=== PATIENT | male | born 1955 | race Caucasian/White ===

== ENCOUNTER 2018-05-24 10:41 | Inpatient (IN) | payer OTHER ==
[2018-05-24 11:14] VITALS: BMI 21.1
--- NOTE | 2018-05-24 17:07 | HP ---
"CIWA Score Nausea/Vomitin-Int. Nausea w/Dry Heave (Moderate nausea. Denies vomiting) Muscle Tremors: 4-Moderate,w/Arms Extend Anxiety: 3 Agitation: 1-Slight > Activity Paroxysmal Sweats: 3 (Increased facial moisture) Orientation: 0-Oriented Tacttile Disturbances: 0-None Auditory Disturbances: 0-None Visual Disturbances: 0-None Headache: 0-None Present CIWA-Ar Total Score: 15 - Admission Criteria OASAS Guidelines: Admission for Medically Managed Detox: Requires at least one of the followin. CIWA greater than 12 2. Seizures within the past 24 hours 3. Delirium tremens within the past 24 hours 4. Hallucinations within the past 24 hours 5. Acute intervention needed for co occurring medical disorder 6. Acute intervention needed for co occurring psychiatric disorder 7. Severe withdrawal that cannot be handled at a lower level of care (continued vomiting, continued diarrhea, abnormal vital signs) requiring intravenous medication and/or fluids 8. Patient presents the following: CIWA greater than 12 Admission Criteria Met: Admission criteria met Admission ROS S - [facility] Chief Complaint: Here for alcohol withdrawal. Allergies/Adverse Reactions: Allergies Allergy/AdvReac Type Severity Reaction Status Date / Time penicillin G Allergy Severe Swelling Verified 05/24/18 15:26 History of Present Illness: States here for alcohol detox. States friend gave him a Librium a few days ago to help with the withdrawal. Denies other illicit drug use. Alcohol use began at age 13. Nicotine use began at age 13. Denies hx Seizures. Hx: Blackouts - none recently. Hx: A-Fib - 2011. Denies chest pain. Denies current meds (Confirmed on today's EKG) Hx: Hemmorrhoids. The longest length of sobriety is a few days. Has tried stopping on own. Tried a detox and rehab program a couple of years ago. States relapsed approx one month after being discharged. Hx: Mental health issues. No recent mental health meds/ Denies thoughts of harming self or others. Encouraged to obtain and f/u w/ a MH provider and PCP upon discharged. Discussed the need for community support and sober housing. Search Terms: Ulices Chapmancynthia, 1955 Search Date: 05/24/2018 05:01:52 PM The Drug Utilization Report below displays all of the controlled substance prescriptions, if any, that your patient has filled in the last twelve months. The information displayed on this report is compiled from pharmacy submissions to the Department, and accurately reflects the information as submitted by the pharmacies. This report was requested by: Emily Kam | Reference #: [id number] Others' Prescriptions Patient Name: Ulices Reed Date: 1955 Address: [address] [place] [address] Sex: Male Rx Written Rx Dispensed Drug Quantity Days Supply Prescriber Name 08/13/2015 06/29/2017 lorazepam 1 mg tablet 4 2 [facility] Exam Limitations: No Limitations - Ebola screening Have you traveled outside of the country in the last 21 days: No Have you had contact with anyone from an Ebola affected area: No Have you been sick,other than usual withdrawal symptoms: No Do you have a fever: No - Review of Systems Constitutional: Diaphoresis EENT: reports: Blurred Vision (Reading glasses), Hearing Loss (Difficulty hearing when there are lots of noises present.), Dental Problems (Dentures - fit well. Denies difficulty chewing or swallowing.) Respiratory: reports: SOB with Exertion (Walking fast or climbing stairs) Cardiac: reports: Irregular Heart Rate (Hx: A-fib. Not on medications. Denies chest pain.) GI: reports: Diarrhea (r/t alcohol withdrawal), Nausea (r/t alcohol withdrawal) , Other (States has hemorrhoids causing rectal pain r/t diarrhea.) : reports: Other (Difficulty initiating flow.) Musculoskeletal: reports: No Symptoms Reported Integumentary: reports: No Symptoms Reported Neuro: reports: Tremors Endocrine: reports: Increased Thirst Hematology: reports: No Symptoms Reported Psychiatric: reports: Judgement Intact, Orientated x3, Agitated, Anxious, Depressed (Denies thoughts of harming self or others) Patient History - Patient Medical History Hx Asthma: No Hx Chronic Obstructive Pulmonary Disease (COPD): No Hx Cardiac Disorders: Yes (Hx A fib - stopped meds in 2011. ) Hx Hypertension: No Hx Seizures: No Hx Diabetes: No Hx Gastrointestinal Disorders: No Hx Liver Disease: No Hx Genitourinary Disorders: No Hx Sexually Transmitted Disorders: No Hx Renal Disease (ESRD): No Hx Human Immunodeficiency Virus (HIV): No (2017) Hx Depression: Yes Hx Suicide Attempt: No Hx Schizophrenia: No - Patient Surgical History Past Surgical History: No Hx Neurologic Surgery: No Hx Cataract Extraction: No Hx Cardiac Surgery: No Hx Lung Surgery: No Hx Breast Surgery: No Hx Breast Biopsy: No Hx Abdominal Surgery: No Hx Appendectomy: No Hx Cholecystectomy: No Hx Genitourinary Surgery: No Hx Section: No Hx Orthopedic Surgery: No Anesthesia Reaction: No - PPD History Previous Implant?: Yes Documented Results: Negative w/o proof Implanted On Prior [facility] Admission?: No PPD to be Administered?: Yes - Smoking Cessation Smoking history: Current every day smoker Have you smoked in the past 12 months: Yes Aproximately how many cigarettes per day: 10 Hx Chewing Tobacco Use: No Initiated information on smoking cessation: Yes 'Breaking Loose' booklet given: 05/24/18 - Substance & Tx. History Hx Alcohol Use: Yes Hx Substance Use: Yes Substance Use Type: Alcohol Hx Substance Use Treatment: Yes (detox, rehab, on own) - Substances Abused Alcohol-beer Route: Oral Frequency: Daily Amount used: 1-2 6 pks. Age of first use: 13 Date of Last Use: 05/23/18 Admission Physical Exam [facility] - Vital Signs Vital Signs: Vital Signs - 24 hr 05/24/18 11:13 Temperature 96.1 F L Pulse Rate 101 H Respiratory 18 Rate Blood Pressure 99/63 - Physical General Appearance: Yes: Appropriately Dressed, Mild Distress, Tremorous, Sweating (Increased facial moisture), Anxious HEENTM: Yes: EOMI, Hearing grossly Normal, Normocephalic, Normal Voice, LUIS EDUARDO, Pharynx Normal (Thick, whitish saliva.), Other ((L) sclera w/ bright red area . Denies eye pain or FB sensation. No conjuntival erythema or exudate.) Respiratory: Yes: Lungs Clear, Normal Breath Sounds, No Respiratory Distress Neck: Yes: No masses,lesions,Nodules, Supple Breast: Yes: Breast Exam Deferred Cardiology: Yes: S1, S2, Tachycardia, Irregular Abdominal: Yes: Non Tender, Flat, Soft, Increased Bowel Sounds, Other (2 small enlarged blood vessels at anal sphincter. No increased erythema, warmth or tenderness. Light watery stool in anal folds.) Genitourinary: Yes: Hesitency Back: Yes: Normal Inspection Musculoskeletal: Yes: full range of Motion, Gait Steady Extremities: Yes: Normal Capillary Refill, Normal Inspection, Normal Range of Motion, Non-Tender, Tremors (Tremors at rest which increase w/ arm elevation) Neurological: Yes: lamp inspector II-XII NML intact, Fully Oriented, Alert, Motor Strength 5/5, Normal Mood/Affect Integumentary: Yes: Normal Color, Dry (Decreased skin turgor), Warm Lymphatic: Yes: Within Normal Limits - Diagnostic (1) Alcohol dependence with uncomplicated withdrawal Current Visit: Yes Status: Acute (2) Atrial fibrillation Current Visit: Yes Status: Chronic Qualifiers: Atrial fibrillation type: chronic Qualified Code(s): I48.2 - Chronic atrial fibrillation (3) Dry skin Current Visit: Yes Status: Chronic (4) Hemorrhoids Current Visit: Yes Status: Chronic Qualifiers: Hemorrhoid type: unspecified Qualified Code(s): K64.9 - Unspecified hemorrhoids (5) Nicotine dependence, uncomplicated Current Visit: Yes Status: Chronic Qualifiers: Nicotine product type: cigarettes Qualified Code(s): F17.210 - Nicotine dependence, cigarettes, uncomplicated Cleared for Admission [facility] - Detox or Rehab [facility] Level of Care: Medically Managed Detox Regimen/Protocol: Librium [facility] Breath Alcohol Content Breath Alcohol Content: 0 Urine Drug Screen - Results Drug Screen Negative: No Urine Drug Screen Results: BZO-Benzodiazepines"
[2018-05-24] MEDS ORDERED: ACETAMINOPHEN 325 MG TABLET (FP) PO PRN (17:45)
[2018-05-24] MEDS ORDERED: MAGNESIUM HYDROX 2400MG/30ML ORAL SUSPENSION 30 ML CUP PO PRN (17:45)
[2018-05-24] MEDS ORDERED: NICOTINE POLACRILEX 2 MG GUM BC PRN (17:45)
[2018-05-24] MEDS ORDERED: MAGNESIUM CITRATE 300 ML BOTTLE PO PRN (17:45)
[2018-05-24] MEDS ORDERED: IBUPROFEN 400 MG TABLET (FP) PO PRN (17:45)
[2018-05-24] MEDS ORDERED: LOPERAMIDE HCL 2 MG CAPSULE PO PRN (17:45)
[2018-05-24] MEDS ORDERED: P-EPHED 60MG/TRIPROLIDI 2.5MG TABLET PO PRN (17:45)
[2018-05-24] MEDS ORDERED: chlordiazePOXIDE HCL 25 MG CAPSULE PO ONE (17:45)
[2018-05-24] MEDS ORDERED: MENTHOL/PHENOL 1 EACH UD MM PRN (17:45)
[2018-05-24] MEDS ORDERED: chlordiazePOXIDE HCL 25 MG CAPSULE PO PRN (17:45)
[2018-05-24] MEDS ORDERED: MAG HYDROX/AL HYDROX/SIMETH 30 ML UNIT-DOSE CUP PO PRN (17:45)
[2018-05-24] MEDS ORDERED: guaiFENesin 200 MG/10 ML 10 ML UNIT-DOSE CUPS PO PRN (17:50)
[2018-05-24] MEDS ORDERED: LOPERAMIDE HCL 2 MG CAPSULE PO ONE (19:49)
[2018-05-24] MEDS ORDERED: BENZOCAINE 28 GM HEMORRHOIDAL OINTMENT PR PRN (19:50)
[2018-05-24] MEDS ORDERED: MELATONIN 5 MG TABLETS PO PRN (22:00)
[2018-05-24] MEDS: THIAMINE HCL 100 MG TABLET (FP) PO SCH (22:18)
[2018-05-24] MEDS: chlordiazePOXIDE HCL 25 MG CAPSULE PO SCH (22:18)
[2018-05-25] MEDS: chlordiazePOXIDE HCL 25 MG CAPSULE PO SCH ×4 (05:53→22:42)
[2018-05-25] MEDS: ASPIRIN COATED 81 MG TABLET.EC PO SCH (10:27)
[2018-05-25] MEDS: PRENATAL VITAMINS W/ FOLIC ACID TABLET (FP) PO SCH (10:27)
[2018-05-25] MEDS: NICOTINE 14 MG/24 HOURS TOPICAL PATCH TD SCH (10:27)
[2018-05-25 11:08] LABS: HEMATOCRIT 38.4 % (35.4-49); HEMOGLOBIN 13.4 GM/dL (11.7-16.9); MCH 36.6 pg (25.7-33.7); MCHC 34.8 g/dl (32.0-35.9); MEAN CELL VOLUME 105.2 fl (80-96); MEAN PLT VOLUME 8.7 fl (7.5-11.1); PLATELET COUNT 69 K/MM3 (134-434); RBC 3.65 M/mm3 (4.00-5.60); RDW 13.5 % (11.9-15.9); WHITE BLOOD COUNT 5.7 K/mm3 (4.0-10.0)
[2018-05-25 11:12] LABS: URINE APPEARANCE CLEAR; URINE BILIRUBIN NEGATIVE (<2.0 mg/dL); URINE GLUCOSE (UA) NEGATIVE (NEGATIVE); URINE KETONE 1+ (NEGATIVE); URINE LEUK ESTERASE NEGATIVE (NEGATIVE); URINE NITRITE NEGATIVE (NEGATIVE); URINE PROTEIN NEGATIVE (NEGATIVE); URINE UROBILINOGEN 4.0 E.U/dl mg/dL (0.2-1.0)
[2018-05-25 11:14] LABS: URINE COLOR DK YELLOW
[2018-05-25 11:18] LABS: ALBUMIN 3.5 g/dl (3.4-5.0); ALK PHOS 101 U/L (45-117); ANION GAP 6 MMOL/L (8-16); BILIRUBIN,TOTAL 0.5 mg/dL (0.2-1); BLOOD UREA NITROGEN 21 mg/dL (7-18); CALCIUM 8.9 mg/dL (8.5-10.1); CHLORIDE 103 mmol/L (98-107); CO2 30 mmol/L (21-32); CREATININE 1.2 mg/dL (0.55-1.3); GLUCOSE,RANDOM 199 mg/dL (74-106); POTASSIUM 3.7 mmol/L (3.5-5.1); SGOT/AST 28 U/L (15-37); SGPT/ALT 38 U/L (13-61); SODIUM 139 mmol/L (136-145); TOT PROT 6.3 g/dl (6.4-8.2)
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
--- NOTE | 2018-05-25 13:24 | EKG ---
Test Reason : Blood Pressure : / mmHG Vent. Rate : 096 BPM Atrial Rate : 208 BPM P-R Int : 000 ms QRS Dur : 080 ms QT Int : 340 ms P-R-T Axes : 000 090 067 degrees QTc Int : 429 ms ATRIAL FIBRILLATION RIGHTWARD AXIS ABNORMAL ECG NO PREVIOUS ECGS AVAILABLE Confirmed by SANJAY MIXON MD ([id number]) on 05/25/2018 1:24:40 PM Referred By: Confirmed By:SANJAY MIXON MD
--- NOTE | 2018-05-25 15:26 | PN ---
S CIWA - CIWA Score Nausea/Vomitin Muscle Tremors: 3 Anxiety: 2 Agitation: 0-Normal Activity Paroxysmal Sweats: No Perspiration Orientation: 2-Disoriented Date<2 days Tacttile Disturbances: 0-None Auditory Disturbances: 1-Very Mild Visual Disturbances: 2-Mild Sensitivity Headache: 0-None Present CIWA-Ar Total Score: 13 S Progress Note (SOAP) Subjective: Body Aches, Interrupted Sleep, Nausea, Tremors, Diarrhea. Objective: PATIENT A & O X 2 (UNCERTAIN ABOUT CURRENT DAY / DATE). PATIENT OBSERVED AMBULATING ON UNIT. IN NO ACUTE DISTRESS. 05/25/18 15:23 Vital Signs Temperature 97 F L 05/25/18 13:39 Pulse Rate 121 H 05/25/18 13:39 Respiratory Rate 16 05/25/18 13:39 Blood Pressure 117/76 05/25/18 13:39 O2 Sat by Pulse Oximetry (%) Laboratory Tests 05/25/18 05/25/18 05/25/18 07:50 07:50 07:50 WBC 5.7 RBC 3.65 L Hgb 13.4 Hct 38.4 MCV 105.2 H MCH 36.6 H MCHC 34.8 RDW 13.5 Plt Count 69 L MPV 8.7 Sodium 139 Potassium 3.7 Chloride 103 Carbon Dioxide 30 Anion Gap 6 L BUN 21 H Creatinine 1.2 Creat Clearance w eGFR > 60 Random Glucose 199 H Calcium 8.9 Total Bilirubin 0.5 AST 28 ALT 38 Alkaline Phosphatase 101 Total Protein 6.3 L Albumin 3.5 Urine Color Urine Appearance Urine pH Ur Specific [place] Urine Protein Urine Glucose (UA) Urine Ketones Urine Blood Urine Nitrite Urine Bilirubin Urine Urobilinogen Ur Leukocyte Esterase RPR Titer Nonreactive 05/25/18 08:57 WBC RBC Hgb Hct MCV MCH MCHC RDW Plt Count MPV Sodium Potassium Chloride Carbon Dioxide Anion Gap BUN Creatinine Creat Clearance w eGFR Random Glucose Calcium Total Bilirubin AST ALT Alkaline Phosphatase Total Protein Albumin Urine Color Dk yellow Urine Appearance Clear Urine pH 6.0 Ur Specific [place] 1.021 Urine Protein Negative Urine Glucose (UA) Negative Urine Ketones 1+ H Urine Blood Negative Urine Nitrite Negative Urine Bilirubin Negative Urine Urobilinogen 4.0 e.u/dl Ur Leukocyte Esterase Negative RPR Titer LABS NOTED. Assessment: 05/25/18 15:23 WITHDRAWAL SYMPTOMS. THROMBOCYTOPENIA. HYPERGLYCEMIA. TACHYCARDIA. 05/25/18 15:24 Plan: CONTINUE DETOX. INCREASE DAILY PO FLUID INTAKE. BGM ACBK FOR ELEVATED ADMISSION GLUCOSE LEVEL.
[2018-05-25] MEDS: THIAMINE HCL 100 MG TABLET (FP) PO SCH (22:42)
[2018-05-26] MEDS: chlordiazePOXIDE HCL 25 MG CAPSULE PO SCH ×3 (05:43→17:04)
[2018-05-26] MEDS: NICOTINE 14 MG/24 HOURS TOPICAL PATCH TD SCH (10:06)
[2018-05-26] MEDS: PRENATAL VITAMINS W/ FOLIC ACID TABLET (FP) PO SCH (10:06)
[2018-05-26] MEDS: ASPIRIN COATED 81 MG TABLET.EC PO SCH (10:06)
--- NOTE | 2018-05-26 13:11 | PN ---
S CIWA - CIWA Score Nausea/Vomitin-No Nausea/No Vomiting Muscle Tremors: 2 Anxiety: 1-Mildly Anxious Agitation: 1-Slight > Activity Paroxysmal Sweats: 1-Minimal Palms Moist Orientation: 0-Oriented Tacttile Disturbances: 0-None Auditory Disturbances: 0-None Visual Disturbances: 0-None Headache: 1-Very Mild CIWA-Ar Total Score: 6 [facility] Progress Note (SOAP) Subjective: social with peers in day room mild tremor little sweating otherwise feeling ok Objective: 05/26/18 13:12 Vital Signs Temperature 97.3 F L 05/26/18 09:21 Pulse Rate 65 05/26/18 09:21 Respiratory Rate 18 05/26/18 09:21 Blood Pressure 132/84 05/26/18 09:21 O2 Sat by Pulse Oximetry (%) Laboratory Last Values WBC 5.7 K/mm3 (4.0-10.0) 05/25/18 07:50 RBC 3.65 M/mm3 (4.00-5.60) L 05/25/18 07:50 Hgb 13.4 GM/dL (11.7-16.9) 05/25/18 07:50 Hct 38.4 % (35.4-49) 05/25/18 07:50 MCV 105.2 fl (80-96) H 05/25/18 07:50 MCH 36.6 pg (25.7-33.7) H 05/25/18 07:50 MCHC 34.8 g/dl (32.0-35.9) 05/25/18 07:50 RDW 13.5 % (11.9-15.9) 05/25/18 07:50 Plt Count 69 K/MM3 (134-434) L 05/25/18 07:50 MPV 8.7 fl (7.5-11.1) 05/25/18 07:50 Sodium 139 mmol/L (136-145) 05/25/18 07:50 Potassium 3.7 mmol/L (3.5-5.1) 05/25/18 07:50 Chloride 103 mmol/L (98-107) 05/25/18 07:50 Carbon Dioxide 30 mmol/L (21-32) 05/25/18 07:50 Anion Gap 6 MMOL/L (8-16) L 05/25/18 07:50 BUN 21 mg/dL (7-18) H 05/25/18 07:50 Creatinine 1.2 mg/dL (0.55-1.3) 05/25/18 07:50 Creat Clearance w eGFR > 60 (>60) 05/25/18 07:50 POC Glucometer 121 UNITS (80-120) 05/26/18 07:13 Random Glucose 199 mg/dL (74-106) H 05/25/18 07:50 Calcium 8.9 mg/dL (8.5-10.1) 05/25/18 07:50 Total Bilirubin 0.5 mg/dL (0.2-1) 05/25/18 07:50 AST 28 U/L (15-37) 05/25/18 07:50 ALT 38 U/L (13-61) 05/25/18 07:50 Alkaline Phosphatase 101 U/L (45-117) 05/25/18 07:50 Total Protein 6.3 g/dl (6.4-8.2) L 05/25/18 07:50 Albumin 3.5 g/dl (3.4-5.0) 05/25/18 07:50 Urine Color Dk yellow 05/25/18 08:57 Urine Appearance Clear 05/25/18 08:57 Urine pH 6.0 (5.0-8.0) 05/25/18 08:57 Ur Specific [place] 1.021 (1.010-1.035) 05/25/18 08:57 Urine Protein Negative (NEGATIVE) 05/25/18 08:57 Urine Glucose (UA) Negative (NEGATIVE) 05/25/18 08:57 Urine Ketones 1+ (NEGATIVE) H 05/25/18 08:57 Urine Blood Negative (NEGATIVE) 05/25/18 08:57 Urine Nitrite Negative (NEGATIVE) 05/25/18 08:57 Urine Bilirubin Negative (<2.0 mg/dL) 05/25/18 08:57 Urine Urobilinogen 4.0 e.u/dl mg/dL (0.2-1.0) 05/25/18 08:57 Ur Leukocyte Esterase Negative (NEGATIVE) 05/25/18 08:57 RPR Titer Nonreactive (NONREACTIVE) 05/25/18 07:50 lab noted Assessment: 05/26/18 13:13 withdrawal sx Plan: continue detox
[2018-05-26] MEDS: THIAMINE HCL 100 MG TABLET (FP) PO SCH (22:36)
[2018-05-26] MEDS: chlordiazePOXIDE 5 MG CAPSULE PO SCH (22:36)
[2018-05-27] MEDS: chlordiazePOXIDE 5 MG CAPSULE PO SCH ×3 (06:06→17:36)
[2018-05-27] MEDS: ASPIRIN COATED 81 MG TABLET.EC PO SCH (10:09)
[2018-05-27] MEDS: PRENATAL VITAMINS W/ FOLIC ACID TABLET (FP) PO SCH (10:09)
[2018-05-27] MEDS: NICOTINE 14 MG/24 HOURS TOPICAL PATCH TD SCH (10:09)
--- NOTE | 2018-05-27 11:15 | PN ---
[facility] Progress Note (SOAP) Subjective: joints pain body aches tremor restlessness Objective: 05/27/18 11:13 Vital Signs Temperature 96.4 F L 05/27/18 09:28 Pulse Rate 85 05/27/18 09:28 Respiratory Rate 18 05/27/18 09:28 Blood Pressure 130/79 05/27/18 09:28 O2 Sat by Pulse Oximetry (%) Laboratory Last Values WBC 5.7 K/mm3 (4.0-10.0) 05/25/18 07:50 RBC 3.65 M/mm3 (4.00-5.60) L 05/25/18 07:50 Hgb 13.4 GM/dL (11.7-16.9) 05/25/18 07:50 Hct 38.4 % (35.4-49) 05/25/18 07:50 MCV 105.2 fl (80-96) H 05/25/18 07:50 MCH 36.6 pg (25.7-33.7) H 05/25/18 07:50 MCHC 34.8 g/dl (32.0-35.9) 05/25/18 07:50 RDW 13.5 % (11.9-15.9) 05/25/18 07:50 Plt Count 69 K/MM3 (134-434) L 05/25/18 07:50 MPV 8.7 fl (7.5-11.1) 05/25/18 07:50 Sodium 139 mmol/L (136-145) 05/25/18 07:50 Potassium 3.7 mmol/L (3.5-5.1) 05/25/18 07:50 Chloride 103 mmol/L (98-107) 05/25/18 07:50 Carbon Dioxide 30 mmol/L (21-32) 05/25/18 07:50 Anion Gap 6 MMOL/L (8-16) L 05/25/18 07:50 BUN 21 mg/dL (7-18) H 05/25/18 07:50 Creatinine 1.2 mg/dL (0.55-1.3) 05/25/18 07:50 Creat Clearance w eGFR > 60 (>60) 05/25/18 07:50 POC Glucometer 107 UNITS (80-120) 05/27/18 06:06 Random Glucose 199 mg/dL (74-106) H 05/25/18 07:50 Calcium 8.9 mg/dL (8.5-10.1) 05/25/18 07:50 Total Bilirubin 0.5 mg/dL (0.2-1) 05/25/18 07:50 AST 28 U/L (15-37) 05/25/18 07:50 ALT 38 U/L (13-61) 05/25/18 07:50 Alkaline Phosphatase 101 U/L (45-117) 05/25/18 07:50 Total Protein 6.3 g/dl (6.4-8.2) L 05/25/18 07:50 Albumin 3.5 g/dl (3.4-5.0) 05/25/18 07:50 Urine Color Dk yellow 05/25/18 08:57 Urine Appearance Clear 05/25/18 08:57 Urine pH 6.0 (5.0-8.0) 05/25/18 08:57 Ur Specific [place] 1.021 (1.010-1.035) 05/25/18 08:57 Urine Protein Negative (NEGATIVE) 05/25/18 08:57 Urine Glucose (UA) Negative (NEGATIVE) 05/25/18 08:57 Urine Ketones 1+ (NEGATIVE) H 05/25/18 08:57 Urine Blood Negative (NEGATIVE) 05/25/18 08:57 Urine Nitrite Negative (NEGATIVE) 05/25/18 08:57 Urine Bilirubin Negative (<2.0 mg/dL) 05/25/18 08:57 Urine Urobilinogen 4.0 e.u/dl mg/dL (0.2-1.0) 05/25/18 08:57 Ur Leukocyte Esterase Negative (NEGATIVE) 05/25/18 08:57 RPR Titer Nonreactive (NONREACTIVE) 05/25/18 07:50 lab noted low platelets Assessment: 05/27/18 11:14 withdrawal sx Plan: continue detox discontinue detox
[2018-05-27] MEDS: THIAMINE HCL 100 MG TABLET (FP) PO SCH (22:11)
[2018-05-27] MEDS: chlordiazePOXIDE HCL 10 MG CAPSULE PO SCH (22:11)
[2018-05-28] MEDS: chlordiazePOXIDE HCL 10 MG CAPSULE PO SCH ×2 (05:42→10:11)
[2018-05-28] MEDS: PRENATAL VITAMINS W/ FOLIC ACID TABLET (FP) PO SCH (10:10)
[2018-05-28] MEDS: ASPIRIN COATED 81 MG TABLET.EC PO SCH (10:11)
[2018-05-28] MEDS: NICOTINE 14 MG/24 HOURS TOPICAL PATCH TD SCH (10:12)
[2018-05-28 13:37] VITALS: BP 114/72; PULSE 94; TEMP 96
--- NOTE | 2018-05-28 14:26 | DS ---
[facility] Detox Discharge Summary Admission Date: 05/24/18 Discharge Date: 05/28/18 - History Present History: Alcohol Dependence Additional Comments: 63 years old male admitted on 05/24/18 for alcohol withdrawal stabilization completed detox regimen tolerated well alert no acute distress aftercare [facility] - Physical Exam Results Vital Signs: Vital Signs Temperature 96.0 F L 05/28/18 13:37 Pulse Rate 94 H 05/28/18 13:37 Respiratory Rate 18 05/28/18 13:37 Blood Pressure 114/72 05/28/18 13:37 O2 Sat by Pulse Oximetry (%) Pertinent Admission Physical Exam Findings: alcohol withdrawal sx Laboratory Last Values WBC 5.7 K/mm3 (4.0-10.0) 05/25/18 07:50 RBC 3.65 M/mm3 (4.00-5.60) L 05/25/18 07:50 Hgb 13.4 GM/dL (11.7-16.9) 05/25/18 07:50 Hct 38.4 % (35.4-49) 05/25/18 07:50 MCV 105.2 fl (80-96) H 05/25/18 07:50 MCH 36.6 pg (25.7-33.7) H 05/25/18 07:50 MCHC 34.8 g/dl (32.0-35.9) 05/25/18 07:50 RDW 13.5 % (11.9-15.9) 05/25/18 07:50 Plt Count 69 K/MM3 (134-434) L 05/25/18 07:50 MPV 8.7 fl (7.5-11.1) 05/25/18 07:50 Sodium 139 mmol/L (136-145) 05/25/18 07:50 Potassium 3.7 mmol/L (3.5-5.1) 05/25/18 07:50 Chloride 103 mmol/L (98-107) 05/25/18 07:50 Carbon Dioxide 30 mmol/L (21-32) 05/25/18 07:50 Anion Gap 6 MMOL/L (8-16) L 05/25/18 07:50 BUN 21 mg/dL (7-18) H 05/25/18 07:50 Creatinine 1.2 mg/dL (0.55-1.3) 05/25/18 07:50 Creat Clearance w eGFR > 60 (>60) 05/25/18 07:50 POC Glucometer 116 UNITS (80-120) 05/28/18 05:42 Random Glucose 199 mg/dL (74-106) H 05/25/18 07:50 Calcium 8.9 mg/dL (8.5-10.1) 05/25/18 07:50 Total Bilirubin 0.5 mg/dL (0.2-1) 05/25/18 07:50 AST 28 U/L (15-37) 05/25/18 07:50 ALT 38 U/L (13-61) 05/25/18 07:50 Alkaline Phosphatase 101 U/L (45-117) 05/25/18 07:50 Total Protein 6.3 g/dl (6.4-8.2) L 05/25/18 07:50 Albumin 3.5 g/dl (3.4-5.0) 05/25/18 07:50 Urine Color Dk yellow 05/25/18 08:57 Urine Appearance Clear 05/25/18 08:57 Urine pH 6.0 (5.0-8.0) 05/25/18 08:57 Ur Specific [place] 1.021 (1.010-1.035) 05/25/18 08:57 Urine Protein Negative (NEGATIVE) 05/25/18 08:57 Urine Glucose (UA) Negative (NEGATIVE) 05/25/18 08:57 Urine Ketones 1+ (NEGATIVE) H 05/25/18 08:57 Urine Blood Negative (NEGATIVE) 05/25/18 08:57 Urine Nitrite Negative (NEGATIVE) 05/25/18 08:57 Urine Bilirubin Negative (<2.0 mg/dL) 05/25/18 08:57 Urine Urobilinogen 4.0 e.u/dl mg/dL (0.2-1.0) 05/25/18 08:57 Ur Leukocyte Esterase Negative (NEGATIVE) 05/25/18 08:57 RPR Titer Nonreactive (NONREACTIVE) 05/25/18 07:50 lab noted - Treatment Hospital Course: Detox Protocol Followed, Detoxed Safely, Responded well, Discharged Condition Good, Rehab Referral Accepted Patient has Accepted a [facility] Referral to: [facility] - Medication Discharge Medications: Ambulatory Orders NK [No Known Home Medication] 05/24/18 - Diagnosis (1) Alcohol dependence with uncomplicated withdrawal Current Visit: Yes Status: Acute (2) Nicotine dependence, uncomplicated Current Visit: Yes Status: Acute Qualifiers: Nicotine product type: cigarettes Qualified Code(s): F17.210 - Nicotine dependence, cigarettes, uncomplicated (3) Substance induced mood disorder Current Visit: Yes Status: Suspected - AMA Did Patient Leave Against Medical Advice: No
== END 2018-05-28 14:45 | disposition other institution (70) | DRG 775 ==
LOC: YASAS 10:41 → Y3N 18:13
PROVIDERS: ADMIT Neuromusculoskeletal Medicine & OMM; ATTEND Neuromusculoskeletal Medicine & OMM
PROC: HZ2ZZZZ Detoxification Services for Substance Abuse Treatment (ICD-10-PCS; principal; 2018-05-24)
DX: F10.230 Alcohol dependence with withdrawal, uncomplicated (principal); F17.210 Nicotine dependence, cigarettes, uncomplicated; F19.24 Other psychoactive substance dependence with psychoactive substance-induced mood disorder; D69.6 Thrombocytopenia, unspecified; R00.0 Tachycardia, unspecified; R73.9 Hyperglycemia, unspecified; I48.91 Unspecified atrial fibrillation; K64.8 Other hemorrhoids; L98.8 Other specified disorders of the skin and subcutaneous tissue; Z88.0 Allergy status to penicillin; Z59.0 Homelessness
CPT/HCPCS: 36415; 80053; 81003; 82962; 85027; 86593; 93005; 93010

== ENCOUNTER 2018-05-28 14:51 | Inpatient (IN) | payer OTHER ==
--- NOTE | 2018-05-28 14:30 | HP ---
[facility] Rehab Assess/Revision - Admission History Admitted to Rehab from: [facility] Date of Admission to Rehab: 05/28/18 - Findings Detox History & Physical reviewed: Yes Concur with findings: Yes Comments/Additional Findings: transferred from detox to rehab as per protocol Inpatient Rehab Admission - Initial Determination Are CD services needed?: Yes Free of communicable disease: Yes Not in need of hospitalization: Yes - Rehab Admission Criteria Previous failed treatment: Yes Poor recovery environment: Yes Comorbidities: Yes Lacks judgement: No Patient is meeting Inpatient Rehab admission criteria:: Yes
[~2018-05-28 14:51] MED LIST: ACETAMINOPHEN 325 MG TABLET (FP) PO PRN; BENZOCAINE 28 GM HEMORRHOIDAL OINTMENT PR PRN; IBUPROFEN 400 MG TABLET (FP) PO PRN; LOPERAMIDE HCL 2 MG CAPSULE PO PRN; MAG HYDROX/AL HYDROX/SIMETH 30 ML UNIT-DOSE CUP PO PRN; MAGNESIUM CITRATE 300 ML BOTTLE PO PRN; MAGNESIUM HYDROX 2400MG/30ML ORAL SUSPENSION 30 ML CUP PO PRN; MENTHOL/PHENOL 1 EACH UD MM PRN; NICOTINE POLACRILEX 2 MG GUM BUC PRN; P-EPHED 60MG/TRIPROLIDI 2.5MG TABLET PO PRN; guaiFENesin/D-METHORPHAN HB 10 ML UNIT-DOSE CUPS PO PRN
[2018-05-28] MEDS: MELATONIN 5 MG TABLETS PO PRN (21:24)
[2018-05-28] MEDS: THIAMINE HCL 100 MG TABLET (FP) PO SCH (21:24)
--- NOTE | 2018-05-29 09:14 | CONSULT ---
[facility] Psychiatric Consult - Data Date of interview: 05/29/18 Admission source: 3N Identifying data: Mr Reed is a 63 years old single male, unemployed on public assistance, homeless seeking rehab treatment for alcohol Substance Abuse History: Reports history of alcohol use. Refer to addiction counselor's summary for further information Medical History: Significant for atrial fibrillation, hemorrhoids. Smokes 10 cigarettes daily Psychiatric History: Patient denies history of psychiatric hospitalizations. He recalls a brief stay at [facility] years ago, for extended psychiatric observation (48 hours) due to alteration of mental status + behavioral dyscontrol (context of ETOH intoxication).Mr Galo does admit to past OPD care with paxil + risperdal. Endorses a history of dysphoria and sporadic auditory + visual hallucinations (voices calling his name, visions, flashes of light) concomitant with use of alcohol. Reportedly non-adherent to psychotropic medications for more than a year. No recent contact with psychiatric care providers. Patient denies history of suicide attempts.
[2018-05-29] MEDS: PRENATAL VITAMINS W/ FOLIC ACID TABLET (FP) PO SCH (10:05)
[2018-05-29] MEDS: ASPIRIN 81 MG CHEWABLE TABLETS PO SCH (16:53)
[2018-05-29] MEDS: MELATONIN 5 MG TABLETS PO PRN (21:16)
[2018-05-29] MEDS: THIAMINE HCL 100 MG TABLET (FP) PO SCH (21:16)
[2018-05-30] MEDS: NICOTINE 14 MG/24 HOURS TOPICAL PATCH TD PRN (09:44)
[2018-05-30] MEDS: ASPIRIN 81 MG CHEWABLE TABLETS PO SCH (09:44)
[2018-05-30] MEDS: PRENATAL VITAMINS W/ FOLIC ACID TABLET (FP) PO SCH (09:44)
[2018-05-30] MEDS: MELATONIN 5 MG TABLETS PO PRN (21:10)
[2018-05-30] MEDS: THIAMINE HCL 100 MG TABLET (FP) PO SCH (21:10)
[2018-05-31] MEDS: PRENATAL VITAMINS W/ FOLIC ACID TABLET (FP) PO SCH (09:54)
[2018-05-31] MEDS: ASPIRIN 81 MG CHEWABLE TABLETS PO SCH (09:54)
[2018-05-31] MEDS: MELATONIN 5 MG TABLETS PO PRN (21:11)
[2018-05-31] MEDS: THIAMINE HCL 100 MG TABLET (FP) PO SCH (21:11)
[2018-06-01] MEDS: NICOTINE 14 MG/24 HOURS TOPICAL PATCH TD PRN (09:57)
[2018-06-01] MEDS: ASPIRIN 81 MG CHEWABLE TABLETS PO SCH (09:57)
[2018-06-01] MEDS: PRENATAL VITAMINS W/ FOLIC ACID TABLET (FP) PO SCH (09:57)
[2018-06-01] MEDS: THIAMINE HCL 100 MG TABLET (FP) PO SCH (21:05)
[2018-06-01] MEDS: MELATONIN 5 MG TABLETS PO PRN (21:05)
[2018-06-02] MEDS: PRENATAL VITAMINS W/ FOLIC ACID TABLET (FP) PO SCH (09:34)
[2018-06-02] MEDS: NICOTINE 14 MG/24 HOURS TOPICAL PATCH TD PRN (09:34)
[2018-06-02] MEDS: ASPIRIN 81 MG CHEWABLE TABLETS PO SCH (09:34)
[2018-06-02] MEDS: MELATONIN 5 MG TABLETS PO PRN (21:07)
[2018-06-02] MEDS: THIAMINE HCL 100 MG TABLET (FP) PO SCH (21:07)
[2018-06-03] MEDS: ASPIRIN 81 MG CHEWABLE TABLETS PO SCH (09:43)
[2018-06-03] MEDS: PRENATAL VITAMINS W/ FOLIC ACID TABLET (FP) PO SCH (09:43)
[2018-06-03] MEDS: THIAMINE HCL 100 MG TABLET (FP) PO SCH (21:05)
[2018-06-03] MEDS: MELATONIN 5 MG TABLETS PO PRN (21:06)
[2018-06-04] MEDS: ASPIRIN 81 MG CHEWABLE TABLETS PO SCH (10:00)
[2018-06-04] MEDS: PRENATAL VITAMINS W/ FOLIC ACID TABLET (FP) PO SCH (10:00)
[2018-06-04] MEDS: NICOTINE 14 MG/24 HOURS TOPICAL PATCH TD PRN (10:01)
[2018-06-04] MEDS: MELATONIN 5 MG TABLETS PO PRN (21:09)
[2018-06-04] MEDS: THIAMINE HCL 100 MG TABLET (FP) PO SCH (21:09)
[2018-06-05] MEDS: PRENATAL VITAMINS W/ FOLIC ACID TABLET (FP) PO SCH (09:48)
[2018-06-05] MEDS: ASPIRIN 81 MG CHEWABLE TABLETS PO SCH (09:48)
[2018-06-05] MEDS: NICOTINE 14 MG/24 HOURS TOPICAL PATCH TD PRN (09:48)
[2018-06-05] MEDS: MELATONIN 5 MG TABLETS PO PRN (21:07)
[2018-06-05] MEDS: THIAMINE HCL 100 MG TABLET (FP) PO SCH (21:07)
[2018-06-06] MEDS: NICOTINE 14 MG/24 HOURS TOPICAL PATCH TD PRN (10:16)
[2018-06-06] MEDS: ASPIRIN 81 MG CHEWABLE TABLETS PO SCH (10:16)
[2018-06-06] MEDS: PRENATAL VITAMINS W/ FOLIC ACID TABLET (FP) PO SCH (10:16)
[2018-06-06] MEDS: THIAMINE HCL 100 MG TABLET (FP) PO SCH (21:10)
[2018-06-06] MEDS: MELATONIN 5 MG TABLETS PO PRN (21:10)
[2018-06-07] MEDS: ASPIRIN 81 MG CHEWABLE TABLETS PO SCH (09:55)
[2018-06-07] MEDS: NICOTINE 14 MG/24 HOURS TOPICAL PATCH TD PRN (09:55)
[2018-06-07] MEDS: PRENATAL VITAMINS W/ FOLIC ACID TABLET (FP) PO SCH (09:55)
[2018-06-07] MEDS: MELATONIN 5 MG TABLETS PO PRN (21:05)
[2018-06-07] MEDS: THIAMINE HCL 100 MG TABLET (FP) PO SCH (21:08)
[2018-06-08] MEDS: ASPIRIN 81 MG CHEWABLE TABLETS PO SCH (09:50)
[2018-06-08] MEDS: NICOTINE 14 MG/24 HOURS TOPICAL PATCH TD PRN (09:50)
[2018-06-08] MEDS: PRENATAL VITAMINS W/ FOLIC ACID TABLET (FP) PO SCH (09:50)
[2018-06-08] MEDS: THIAMINE HCL 100 MG TABLET (FP) PO SCH (21:08)
[2018-06-08] MEDS: MELATONIN 5 MG TABLETS PO PRN (21:09)
[2018-06-09] MEDS: PRENATAL VITAMINS W/ FOLIC ACID TABLET (FP) PO SCH (09:54)
[2018-06-09] MEDS: NICOTINE 14 MG/24 HOURS TOPICAL PATCH TD PRN (09:54)
[2018-06-09] MEDS: ASPIRIN 81 MG CHEWABLE TABLETS PO SCH (09:54)
[2018-06-09] MEDS: MELATONIN 5 MG TABLETS PO PRN (21:13)
[2018-06-09] MEDS: THIAMINE HCL 100 MG TABLET (FP) PO SCH (21:13)
[2018-06-10] MEDS: ASPIRIN 81 MG CHEWABLE TABLETS PO SCH (10:06)
[2018-06-10] MEDS: PRENATAL VITAMINS W/ FOLIC ACID TABLET (FP) PO SCH (10:06)
[2018-06-10] MEDS: NICOTINE 14 MG/24 HOURS TOPICAL PATCH TD PRN (10:06)
[2018-06-10] MEDS: THIAMINE HCL 100 MG TABLET (FP) PO SCH (21:11)
[2018-06-10] MEDS: MELATONIN 5 MG TABLETS PO PRN (21:11)
[2018-06-11 07:03] VITALS: BP 109/64; PULSE 76; TEMP 97.4
--- NOTE | 2018-06-11 08:27 | PN ---
[facility] Progress Note Note: PT COMPLETED REHAB AND DISCHARGING TODAY. PT HAS BEEN REFERRED TO [facility] CD TREATMENT ON [address], [place] FOR AFTERCARE. PT REPORTS HE HAS A PCP DR. CHRIST SOLIMAN AT [facility] ON [address], [place]. PT REPORTS HE IS GOING TO SEE HIS PCP SOON AFTER LEAVING REHAB TODAY. DECLINES COURTESY RX FOR ASPIRIN STATING HE IS SEEING HIS DOCTOR ANYWAYS. Laboratory Tests 05/30/18 05/31/18 06/01/18 06:32 06:42 06:33 POC Glucometer 121 109 92 06/02/18 06:28 POC Glucometer 92 Vital Signs - 24 hr 06/11/18 06/11/18 00:30 07:02 Temperature 97.4 F L Pulse Rate 76 Respiratory 18 16 Rate Blood Pressure 109/64 NAD MEDICALLY STABLE PLAN:FOLLOW UP AT [facility] FOR CD AFTERCARE TODAY, 06/11/18 AT 12:[address] FOLLOW UP WITH DR CHRIST SOLIMAN FOR MEDICAL MANAGEMENT WITHIN 1 WEEK AFTER DISCHARGE AND NEEDED.
[2018-06-11] MEDS: ASPIRIN 81 MG CHEWABLE TABLETS PO SCH (09:42)
[2018-06-11] MEDS: PRENATAL VITAMINS W/ FOLIC ACID TABLET (FP) PO SCH (09:42)
== END 2018-06-11 10:15 | disposition home or self-care (01) | DRG 772 ==
LOC: YASAS 14:51 → Y5N 14:52
PROVIDERS: ADMIT Psychiatry & Neurology Psychiatry; ATTEND Psychiatry & Neurology Psychiatry
PROC: HZ42ZZZ Group Counseling for Substance Abuse Treatment, Cognitive-Behavioral (ICD-10-PCS; principal; 2018-05-28)
DX: F10.20 Alcohol dependence, uncomplicated (principal); F17.210 Nicotine dependence, cigarettes, uncomplicated; I48.2 Chronic atrial fibrillation; L98.8 Other specified disorders of the skin and subcutaneous tissue; K64.9 Unspecified hemorrhoids; R00.0 Tachycardia, unspecified; Z59.0 Homelessness
CPT/HCPCS: 82962